=== PATIENT | female | born 1985 | race Caucasian/White ===

== ENCOUNTER 2018-05-28 20:00 | Inpatient (IN) | payer OTHER ==
[2018-05-28 21:43] LABS: PLATELET COUNT 201 10^3/uL (150-400)
[2018-05-29] MEDS ORDERED: LR 500 ML IV ONE (00:21)
[2018-05-29] MEDS ORDERED: CALCIUM GLUC 10% 1 GM/10 ML VIAL IVP PRN (00:21)
[2018-05-29] MEDS ORDERED: ceFAZolin 2 GM/DEXTROSE 100 ML IV ONE (00:21)
[2018-05-29] MEDS ORDERED: MAGNESIUM SULF 4 GM/WATER 100 ML IV ONE (00:21)
[2018-05-29] MEDS ORDERED: LR 1,000 ML IV SCH (00:30)
--- NOTE | 2018-05-29 00:30 | PDGENHP ---
History and Physical History and Physical: Care: [facility] HPI: Pt paged at 1845 reporting MANCINI x 2 days as well as nausea. 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 Had 2 blood pressures in low 140's/90's. Also reports significant swelling in hands and face that have been getting worse. Patient is a 32 yo G 3 P 1 @ 38.5 weeks that presents to L&D with complaints of headache and elevated blood pressures EDC: 06/07/2018 which is based on LMP: 08/13/2017 which is known and consistent with Ultrasound at 6.6 weeks. Her is complicated by: RH negative, prior csection for breech presentation, ho GDM (neg this ) Review of Systems: Constitutional: Denies any fever, chills, or fatigue HEENT: Reports MANCINI x 2 days that improves when lying down however when standing up or bending over "it's excruciating". Also notes "floaties" in peripheral vision. Cardiovascular: Reports some chest tightness but states it occurred when laying down flat on her back and while having a dream, Does have lower extremity edema. Respiratory: denies any cough, wheezing, or shortness of breathe GI: Has had nausea for the past couple of days, denies vomiting, diarrhea, constipation : denies any dysuria, urgency, frequency, vaginal bleeding Musculoskeletal: denies any muscle or bone pain Skin: denies any rashes Neuro: Reports MANCINI x 2 days that improves when lying down however when standing up or bending over "it's excruciating". Also notes "floaties" in peripheral vision. Psychiatric: denies any depression, anxiety, or SI/HI thoughts HISTORY: Previous OB history: pcsec for breech presentation, previous GDM treated with glyburide and diet Past medical history: PCOS , freq cold sores Past surgical history: pcsec Social: Denies any alcohol, tobacco, or drug use. Family history: Not relevant Medications: PNV Allergies (list reaction): NKDA LABS: Rh: O neg ABS: Neg Rubella: Immune HbsAg: NR HIV: NR VDRL: NR 1hr: 146; 3 hr normal GC: Neg Chlamydia: Neg Pap: Normal GBS: Negative BMI: (prepreg) 22.6 PHYSICAL EXAM: Constitutional: WN, A&Ox3 HEENT: normocephalic atraumatic, supple Skin: Warm, dry, intact Heart: RRR, no murmur Chest: CTA-B Abdomen: Soft, nontender, gravid SVE: 1-2/50/floating Extremities: +2 edema, negative homans sign, clonus 1+ beat Neuro: +2 DTR, clonus 1+ beat Psych: normal affect assessment: FHT baseline 120-130 +accels, no decels, moderate variability Contractions: toco q 12 Assessment: 1) 32 yo G 3 P 1 with IUP @ 38.5 2) Preeclampsia with severe features 3) GBS neg 4) Cat 1 FHR tracing Plan: 1) Admit to L&D 2) Consulted with Dr Flores with plan to refer given high risk status. 3) Reviewed options with patient regarding induction of labor versus repeat csection. Given the severe preeclampsia diagnosis and likelihood of a long induction, recommended a repeat csection which she is consenting to. Also, discussed Magnesium Sulfate and anticipated treatment, side effects and plan to continue . 4) Dr Flores is assuming care from this point and will be writing orders for Magnesium protocol
--- NOTE | 2018-05-29 01:31 | PDCONSULT ---
Tool Machinist Note: See Zulma Holden H&P - this is my addendum to it: Consulted by Zulma Holden CNM. H&P fully reviewed. I also interviewed and examined patient. Agree with assessment of 32 at 38w5d with preeclampsia with severe features (headache), and hx of prior C/S with an unfavorable cervix. Plan - written informed consent obtained. Will start magsulfate seizure prophylaxis now. Bonnie Flores MD, [facility]
--- NOTE | 2018-05-29 01:33 | OBDEL ---
Info Type: Repeat Presentation at Delivery: Vertex L&D Analgesia/Anesthesia Type: Spinal GBS+: No Intrapartum Medications: Generic Name Dose Route Start Last Admin Trade Name Freq PRN Reason Stop Dose Admin Lactated Ringer's 1,000 mls @ 125 mls/hr 05/29/18 00:30 05/29/18 00:58 Lr IV 05/30/18 00:29 1,000 mls CONT JAMIE Administration Discontinued Medications Generic Name Dose Route Start Last Admin Trade Name Freq PRN Reason Stop Dose Admin Magnesium Sulfate 100 mls @ 200 mls/hr 05/29/18 00:21 05/29/18 00:58 Magnesium Sulf 4 Gm (Premix) IV 05/29/18 00:50 100 mls ONCE ONE Administration - Infant Care Provider Prisoner Classification Interviewer/TAPING SUPERVISOR: Nadya Bahena - Hospital Course Intrapartum: 05/29/18 03:22 received 4 gm of Magsulfate bolus prior to the OR Indications for Delivery: Preeclampsia Severe (severe by headache and scotomata) Operative Report - Delivery Pre-op Diagnoses: Preeclampsia with severe features, prior section, unfavorable cervix Post-op Diagnoses: unchanged History of Prior Section: Yes Number of Prior Sections: 1 Indications for Prior Section: Breech Indications for Current Section: Other (Specify) (preeclampsia with severe features, unfavorable cervix in setting of a prior section) Procedure: Unscheduled Surgeon: Bonnie Flores Industrial Trainer: Julieth Fields Anesthesiologist: Cristofer Loco Findings: Normal appearing uterus, tubes, and ovaries Data CHRISTINA: 06/07/18 Gestational Age: 38 week(s) and 5 day(s) [place] Delivery Date: 05/29/18 Delivery Time: 02:32 Sex of : Female (Phoebe) Gracey Weight (gm): 3264 g Score (1 Min): 9 Score (5 Min): 9 ICD10 Worksheet Patient Problems: Problems Problem Status Onset delivery, delivered, current hospitalization Acute History of delivery, currently Acute History of delivery, currently Acute Pre-eclampsia during in third trimester, antepartum Acute - ICD10 Problem Qualifiers (1) Pre-eclampsia during in third trimester, antepartum (2) History of delivery, currently (3) History of delivery, currently (4) delivery, delivered, current hospitalization
[2018-05-29] MEDS: Mag Sulf 500 ML IV SCH ×2 (01:38→22:08)
[2018-05-29] MEDS ORDERED: fentaNYL 100 MCG/2 ML INJ IVP PRN (01:44)
[2018-05-29] MEDS ORDERED: NALOXONE HCL 0.4 MG/ML INJ IVP PRN ×2 (01:44)
[2018-05-29] MEDS ORDERED: ONDANSETRON 4 MG/2 ML VIAL IVP PRN ×2 (01:44)
[2018-05-29] MEDS ORDERED: LABETALOL HCL 5 MG/ML 20 ML MDV IVP PRN (01:44)
[2018-05-29] MEDS ORDERED: PHENYLEPHRINE HCL 100 MCG/ML SYR IVP PRN (01:44)
--- NOTE | 2018-05-29 01:51 | PREANESOB ---
Obstetric Pre-Anesthesia Info - General Info Proposed Procedure: C/S : 3 Para: 1 CHRISTINA: 06/07/18 Gestational Age: 38 week(s) and 4 day(s) - Info Status: Full Term, [place] Monitors: External FHR Pattern: Reassuring - Labor Status PIH: Moderate Magnesium Sulfate in Use: Yes Section History: Repeat Indications for Current Section: Other (Specify) (preeclampsia with severe features, unfavorable cervix in setting of a prior section) Labor Epidural: No Anesthesia Allergies/Adverse Reactions: Allergy/AdvReac Type Severity Reaction Status Date / Time No Known Allergies Allergy Unverified 05/28/18 21:14 Visit Medications: Generic Name Dose Route Start Last Admin Trade Name Freq PRN Reason Stop Dose Admin Calcium Gluconate 1 gm 05/29/18 00:21 Calcium Gluconate IVP 11/25/18 00:20 PRN PRN Magnesium Toxicity Diphenhydramine HCl 25 - 50 mg 05/29/18 01:44 Benadryl Injection IVP 05/30/18 01:43 Q6HRS PRN Itching Fentanyl 25 - 50 mcg 05/29/18 01:44 Sublimaze IVP 05/29/18 02:45 Q5M PRN Short acting pain control Lactated Ringer's 1,000 mls @ 125 mls/hr 05/29/18 00:30 05/29/18 00:58 Lr IV 05/30/18 00:29 1,000 mls CONT JAMIE Administration Magnesium Sulfate 500 mls @ 50 mls/hr 05/29/18 00:30 05/29/18 01:38 Magnesium Sulfate 20 Gm/ 500 Ml (Premix) IV 11/25/18 00:29 500 mls CONT JAMIE Administration Labetalol HCl 5 - 10 mg 05/29/18 01:44 Trandate Injection IVP 05/29/18 02:45 Q10M PRN Hypertension Morphine Sulfate 1 - 2 mg 05/29/18 01:44 Morphine IVP 05/29/18 02:45 Q10M PRN Pain, Severe Unable to Take PO Naloxone HCl 0.1 mg 05/29/18 01:44 Narcan IVP 05/29/18 02:45 Q2M PRN Respiratory Depression Naloxone HCl 0.4 mg 05/29/18 01:44 Narcan IVP 05/30/18 01:47 PRN PRN respiratory depression Ondansetron HCl 4 mg 05/29/18 01:44 Zofran IVP 05/29/18 02:45 ONCE PRN Nausea/Vomiting, Can't Take PO Ondansetron HCl 4 mg 05/29/18 01:44 Zofran IVP 05/30/18 01:43 Q4HRS PRN Nausea/Vomiting, Can't Take PO Phenylephrine HCl 100 mcg 05/29/18 01:44 Neosynephrine IVP 05/29/18 02:45 Q1M PRN Hypotension Discontinued Medications Generic Name Dose Route Start Last Admin Trade Name Freq PRN Reason Stop Dose Admin Cefazolin Sodium/Dextrose 100 mls @ 200 mls/hr 05/29/18 00:21 Ancef 2 Gm IV 05/29/18 00:50 ONCALL ONE Protocol Lactated Ringer's 500 mls @ 0 mls/hr 05/29/18 00:21 Lr IV 05/29/18 00:22 ONCE ONE As Directed Magnesium Sulfate 100 mls @ 200 mls/hr 05/29/18 00:21 05/29/18 00:58 Magnesium Sulf 4 Gm (Premix) IV 05/29/18 00:50 100 mls ONCE ONE Administration - Vital Signs Height/Weight (Nursing): Height 153.67 cm Weight 71.668 kg Labs: 05/28/18 20:30 05/28/18 20:30 Patient ABO/Rh O NEGATIVE 05/28/18 20:40 Uric Acid 6.4 mg/dL (2.5-6.8) 05/28/18 20:30 Total Bilirubin 0.2 mg/dL (0.1-1.4) 05/28/18 20:30 Conjugated Bilirubin 0.1 mg/dL (0.0-0.5) 05/28/18 20:30 Unconjugated Bilirubin 0.1 mg/dL (0.0-1.1) 05/28/18 20:30 AST 22 IU/L (14-46) 05/28/18 20:30 ALT 20 IU/L (9-52) 05/28/18 20:30 Lactate Dehydrogenase 523 IU/L (313-618) 05/28/18 20:30
[2018-05-29] MEDS ORDERED: METHYLERGONOVINE MAL 0.2 MG/ML INJ ONE (01:52)
[2018-05-29] MEDS ORDERED: OXYTOCIN 10 UNIT/ML VIAL ONE (01:52)
[2018-05-29] MEDS ORDERED: MISOPROSTOL 200 MCG TAB ONE (01:52)
[2018-05-29] MEDS ORDERED: morphINE PF 5 MG/10 ML INJ ONE (01:54)
[2018-05-29] MEDS ORDERED: fentaNYL 100 MCG/2 ML INJ ONE (01:54)
[2018-05-29] MEDS ORDERED: OXYTOCIN 100 UNITS/10 ML VIAL ONE (02:00)
[2018-05-29] MEDS ORDERED: PHENYLEPHRINE HCL 100 MCG/ML SYR ONE (02:12)
[2018-05-29] MEDS ORDERED: ONDANSETRON 4 MG/2 ML VIAL ONE (02:45)
[2018-05-29] MEDS ORDERED: PROPOFOL 200 MG/20 ML VIAL ONE (02:52)
--- NOTE | 2018-05-29 03:21 | POSTOPPROG ---
Post Op Note Date of Operation: 05/29/18 Surgeon: Bonnie Flores Furnace Cooler: Julieth Fields Anesthesiologist: Cristofer Loco Anesthesia: Spinal Pre-op Diagnosis: preeclampsia with severe features, prior section Post-op Diagnosis: same Indication: preeclampsia with severe features, prior section, unfavorable cerv Procedure: Repeat low transverse section Findings: normal appearing uterus, tubes & ovaries, female infant from [place] Inf/Abcess present in the surg proc area at time of surgery?: No EBL: 500-1000 Total fluids administered: 1000 ml Complications: none Specimen(s): pt desires taking placenta home
--- NOTE | 2018-05-29 03:37 | POSTANESTH ---
Post Anesthetic Evaluation Cardiovascular Status: Normal, Stable Respiratory Status: Normal, Stable, Similar to Pre-op Cond. Level of Consciousness/Mental Status: Can Participate in Eval, Alert and Oriented Pain Control: Adequate, Prn Tx Ordered Nausea/Vomiting Control: Adequate, Prn Tx Ordered Complications Possibly Related to Anesthesia: None Noted
[2018-05-29] MEDS ORDERED: oxyCODONE IR 5 MG TAB PO PRN (06:33)
[2018-05-29] MEDS ORDERED: DOCUSATE SODIUM 100 MG CAP PO PRN ×2 (06:33→07:44)
[2018-05-29] MEDS ORDERED: KETOROLAC 30 MG/1 ML SDV IVP SCH (06:45)
--- NOTE | 2018-05-29 07:09 | GOP ---
DATE OF OPERATION: 05/29/2018 SURGEON: Bonnie Flores MD PHYSICAL SCIENCE TECHNICIAN: VIRGINIE Gutierres. ANESTHESIA: Spinal. ANESTHESIOLOGIST: Cristofer Loco MD. PREOPERATIVE DIAGNOSIS: 1. Preeclampsia with severe features. 2. Prior section. 3. Unfavorable cervix. POSTOPERATIVE DIAGNOSIS: 1. Preeclampsia with severe features. 2. Prior section. 3. Unfavorable cervix. PROCEDURE PERFORMED: Repeat low transverse section. FINDINGS: Normal-appearing uterus, tubes, and ovaries. Female was in the vertex [place] presentation. ESTIMATED BLOOD LOSS: 800 mL. INDICATIONS: 32-year-old 3, para 1 female at 38 weeks and 5 days gestation, presented to Labor and Delivery with elevated blood pressures and headaches and scotomata. Her protein to creatinine ratio was 0.77. All other preeclamptic labs were in the normal range. When her cervix was found to be unfavorable a discussion was had and the decision was made to proceed with a repeat section since she was remote from delivery. DESCRIPTION OF PROCEDURE: Indications, benefits, risks and adverse affects of the recommended section were discussed with the patient. Written informed consent was obtained. She was given a 4 g bolus of magnesium sulfate in the room prior to being taken back to the operating room, where the magnesium sulfate was running at 2gm / hour. She was given 2 g of Ancef on- call to the operating room. In the operating room, a spinal anesthetic was placed. When this was deemed adequate she was placed in the dorsal supine position with a leftward tilt. Her abdomen was prepared and draped in a sterile fashion after a Carlson catheter had been placed. A time-out was performed. She was tested for sensation. A skin incision was made over the previous skin incision. The keloid area of the scar was excised. The skin incision was then taken down to the fascia and the fascia was incised on either side of the midline. This was extended laterally in a sharp fashion. The fascia was dissected away sharply and bluntly from the underlying rectus muscles on the superior and inferior aspects of the incision. The rectus muscles were and the peritoneum was entered bluntly. A bladder blade and Rich retractor were inserted. A bladder flap was created sharply and bluntly. The bladder blade was placed over the bladder flap. Hysterotomy was made and taken down sharply until the release of clear fluid. The hysterotomy was extended laterally in a blunt fashion. The vertex was able to be grasped and elevated through the hysterotomy. With fundal pressure the remainder of the was able to be easily delivered. Delayed cord clamping was performed for a minute. The cord was then clamped and cut and the was handed to the awaiting nurse practitioner who was Nadya Bahena. A cord segment was obtained which was later discarded. Cord blood sample was obtained. The uterine fundal massage was performed to assist in the delivery of the placenta. The placenta appeared intact. The uterus was exteriorized and cleared of all clots and debris twice. The hysterotomy was repaired in a running locked fashion with 0 Monocryl. A second imbricating layer of 0 Monocryl was placed. Cautery was used to obtain excellent hemostasis of a few small bleeders. The posterior cul-de-sac was lightly irrigated and cleared of all clots and debris. The uterus was replaced into the abdomen. The gutters were also cleared of all clots and debris. The fascia was then closed with 0 PDS in a running fashion. Junior's fascia was then closed with 3-0 Monocryl in a running fashion. The skin was then closed with 4-0 Monocryl in a running subcuticular fashion. Steri-Strips and a dressing were placed over the incision. Sponge, lap, and needle counts were correct x2. Fundal massage was performed to remove any remaining clots in the lower uterine segment. The patient was taken to the recovery room in stable condition. After she has been recovered in the recovery room, she will return to her labor room to receive 24 hours of magnesium sulfate for seizure prophylaxis. TOTAL FLUIDS ADMINISTERED: 1000 mL. COMPLICATIONS: None. /[id number]/MODL MTDD
[2018-05-29] MEDS ORDERED: PROMETHAZINE HCL 25 MG/ML INJ IVP PRN (07:44)
[2018-05-29] MEDS ORDERED: BISACODYL 10 MG SUPP PR PRN (07:44)
[2018-05-29] MEDS ORDERED: SIMETHICONE 80 MG TAB CHEW PO PRN (07:44)
[2018-05-29] MEDS ORDERED: MAGNESIUM HYDROXIDE 30 ML UDCUP PO PRN (07:44)
[2018-05-29] MEDS ORDERED: POLYETHYLENE GLYCOL 3350 17 GM PKT PO PRN (07:44)
[2018-05-29] MEDS ORDERED: LACTULOSE 20 GM/30 ML UDCUP PO PRN (07:44)
[2018-05-29] MEDS ORDERED: ACETAMINOPHEN 325 MG TAB PO SCH (07:45)
[2018-05-29] MEDS ORDERED: IBUPROFEN 600 MG TAB PO SCH (07:45)
[2018-05-29] MEDS: KETOROLAC 30 MG/1 ML SDV IVP SCH ×3 (14:02→21:56)
--- NOTE | 2018-05-29 15:31 | OBPP ---
Progress Note Assessment/Plan: Assessment: 32 y/o G3 now P2 s/p RCS secondary to preeclampsia with severe features and unfavorable cervix POD # 0.5 - pt is stable Plan: Continue current management Pt is stable at this time Cont MgSO4 x 24 hours - discontinue around 0230 05/30 Adequate UO noted BPs stable 116-135/71-86, will cont to monitor Cont routine post-op care H/H in am 05/3005/29/18 15:25 Subjective/ Course: 05/29/18 15:28 Pt seen and examined. She is sitting up in bed, and notes feeling "foggy." She is also itchy. Pain is overall well controlled. Denies any HAs, visual changes or RUQ pain. Denies any f/c/n/v/CP or SOB. Pt is pat ice chips, pulliam in place, and no flatus. Min bleeding noted. BF well so far. Objective: 05/28/18 20:30 05/28/18 20:30 Patient ABO/Rh O NEGATIVE 05/29/18 08:30 Uric Acid 6.4 mg/dL (2.5-6.8) 05/28/18 20:30 Total Bilirubin 0.2 mg/dL (0.1-1.4) 05/28/18 20:30 Conjugated Bilirubin 0.1 mg/dL (0.0-0.5) 05/28/18 20:30 Unconjugated Bilirubin 0.1 mg/dL (0.0-1.1) 05/28/18 20:30 AST 22 IU/L (14-46) 05/28/18 20:30 ALT 20 IU/L (9-52) 05/28/18 20:30 Lactate Dehydrogenase 523 IU/L (313-618) 05/28/18 20:30 Temp Pulse Resp BP Pulse Ox 37.2 C 64 18 133/88 H 97 05/29/18 04:04 05/29/18 05:14 05/29/18 05:14 05/29/18 05:14 05/29/18 05:14 Uterine Position/Fundal Height: Umbilicus -1 Uterine Tone: Firm Physical Exam - Physical Exam General Appearance: WD/WN, alert, no apparent distress Respiratory: lungs clear, normal breath sounds Cardiac/Chest: regular rate, rhythm Abdomen: normal bowel sounds, non-tender, soft, incision (C/D/I with dressing in place), dressing (C/D/I with no shadowing) Extremities: non-tender, normal inspection (with SCDs) DTR- Lower Extremities: Plantar (R): 1+, Plantar (L): 1+ Skin: normal color, warm/dry Neuro/Psych: alert, normal mood/affect, oriented x 3
[2018-05-29] MEDS ORDERED: diphenhydrAMINE 25 MG CAP PO ONE (15:38)
[2018-05-29] MEDS: SIMETHICONE 80 MG TAB CHEW PO PRN (15:42)
[2018-05-29] MEDS: ACETAMINOPHEN 325 MG TAB PO SCH ×2 (19:45→20:10)
[2018-05-29] MEDS: IBUPROFEN 600 MG TAB PO SCH (19:46)
[2018-05-29] MEDS: SENNOSIDES/DOCUSATE SODIUM TAB PO SCH ×2 (19:47→20:10)
[2018-05-30] MEDS: SIMETHICONE 80 MG TAB CHEW PO PRN ×4 (00:42→21:11)
[2018-05-30] MEDS: KETOROLAC 30 MG/1 ML SDV IVP SCH (02:24)
[2018-05-30] MEDS: ACETAMINOPHEN 325 MG TAB PO SCH ×4 (02:25→21:11)
[2018-05-30] MEDS: SENNOSIDES/DOCUSATE SODIUM TAB PO SCH ×2 (08:35→21:48)
[2018-05-30] MEDS: IBUPROFEN 600 MG TAB PO SCH ×3 (08:35→21:12)
--- NOTE | 2018-05-30 11:32 | OBPP ---
Progress Note Assessment/Plan: Assessment: 32 y/o G3 now P2 s/p RCS secondary to preeclampsia with severe features and unfavorable cervix POD # 1 - pt is stable Magnesium discontinued this am at 0230 BPs wnl with the exception of one diastolic value of 92. going well Anemia Plan: Pt is stable Urine output WNL BPs stable overall, will cont to monitor Cont routine post-op care Ferrous sulfate daily 05/30/18 11:26 Subjective/ Course: 05/29/18 15:28 Pt seen and examined. She is sitting up in bed, and notes feeling "foggy." She is also itchy. Pain is overall well controlled. Denies any HAs, visual changes or RUQ pain. Denies any f/c/n/v/CP or SOB. Pt is pat ice chips, pulliam in place, and no flatus. Min bleeding noted. BF well so far. 05/30/18 11:32 Doing well - up walking in halls. Glad to be able to eat and get out of bed. Pain controlled with pain meds - just switched to oral. Tolerating regular diet. Has not voided since pulliam removed this am, but had good urine output before it was removed. Denies MANCINI, SOB, visual changes, epigastric pain. Having some mild right shoulder pain which she said she had after her last C- section that was "gas related". Is taking simethicone and up walking as tolerated. Objective: 05/30/18 05:50 05/28/18 20:30 Patient ABO/Rh O NEGATIVE 05/29/18 08:30 Uric Acid 6.4 mg/dL (2.5-6.8) 05/28/18 20:30 Total Bilirubin 0.2 mg/dL (0.1-1.4) 05/28/18 20:30 Conjugated Bilirubin 0.1 mg/dL (0.0-0.5) 05/28/18 20:30 Unconjugated Bilirubin 0.1 mg/dL (0.0-1.1) 05/28/18 20:30 AST 22 IU/L (14-46) 05/28/18 20:30 ALT 20 IU/L (9-52) 05/28/18 20:30 Lactate Dehydrogenase 523 IU/L (313-618) 05/28/18 20:30 Temp Pulse Resp BP Pulse Ox 36.9 C 64 18 121/92 H 91 L 05/30/18 07:00 05/29/18 05:14 05/29/18 05:14 05/30/18 06:59 05/30/18 07:25 Uterine Position/Fundal Height: Umbilicus -1 Uterine Tone: Firm Physical Exam - Physical Exam EENT: PERRL/EOMI, normal ENT inspection Neck: non-tender Respiratory: lungs clear Cardiac/Chest: regular rate, rhythm Abdomen: hypoactive bowel sounds, distended (soft to touch - no unusual tenderness. Most likely gas related. ), incision (well approximated - steri strips intact. no s/s infection) Extremities: normal range of motion, pedal edema (2+ - moderate bilateral ) Back: Normal inspection Skin: normal color, warm/dry Neuro/Psych: no motor/sensory deficits, alert, normal mood/affect, oriented x 3
--- NOTE | 2018-05-30 12:46 | PDPAINCON ---
Pain Management Consultation Patient referred by : Mark - Subjective Pain at rest (/10): 2 Pain with activity (/10): 4 Pain is: low, well controlled Side effects include: itchiness - Objective Technique: spinal opioid Vital signs: stable - Assessment/Plan Assessment/Plan: pain well-controlled, continue current mgmt Additional comments: Transitioning to Oral Pain Meds
[2018-05-30] MEDS: oxyCODONE IR 5 MG TAB PO PRN ×3 (13:44→21:48)
[2018-05-31] MEDS: ACETAMINOPHEN 325 MG TAB PO SCH ×4 (03:01→15:08)
[2018-05-31] MEDS: oxyCODONE IR 5 MG TAB PO PRN ×4 (03:01→12:23)
[2018-05-31] MEDS: IBUPROFEN 600 MG TAB PO SCH ×3 (03:02→15:08)
[2018-05-31] MEDS: SENNOSIDES/DOCUSATE SODIUM TAB PO SCH (08:35)
[2018-05-31] MEDS: SIMETHICONE 80 MG TAB CHEW PO PRN (09:46)
[2018-05-31 12:28] VITALS: BP 135/90
--- NOTE | 2018-05-31 13:18 | OBPP ---
Progress Note Assessment/Plan: Assessment: PPD 2 - repeat csection Pain well managed. Stable blood pressures, no severe features of preeclampsia Plan: Reviewed POC with Dr Groves. Given that symptoms have resolved and blood pressures have remained stable, ok to discharge home today. Will be monitoring blood pressures and reviewed warning s/sxs. Will be following up in the clinic on Sunday. 05/31/18 13:19 Subjective/ Course: 05/29/18 15:28 Pt seen and examined. She is sitting up in bed, and notes feeling "foggy." She is also itchy. Pain is overall well controlled. Denies any HAs, visual changes or RUQ pain. Denies any f/c/n/v/CP or SOB. Pt is pat ice chips, pulliam in place, and no flatus. Min bleeding noted. BF well so far. 05/30/18 11:32 Doing well - up walking in halls. Glad to be able to eat and get out of bed. Pain controlled with pain meds - just switched to oral. Tolerating regular diet. Has not voided since pulliam removed this am, but had good urine output before it was removed. Denies MANCINI, SOB, visual changes, epigastric pain. Having some mild right shoulder pain which she said she had after her last C- section that was "gas related". Is taking simethicone and up walking as tolerated. 05/31/18 13:14 Doing well. Anxious for discharge home today. Pain well controlled with ibuprofen, tylenol and oxycodone. Tolerating regular diet. Ambulating without difficulty. Did have a mild MANCINI after being outside sitting on the balcony for a long period of time that resolved when she laid down to get some sleep. Denies visual changes, epigastric pain, SOB. Swelling has decreased significantly since . Has good familial support. Plans on picking up a blood pressure cuff to monitor pressure at home. 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 Objective: 05/30/18 05:50 05/28/18 20:30 Patient ABO/Rh O NEGATIVE 05/29/18 08:30 Uric Acid 6.4 mg/dL (2.5-6.8) 05/28/18 20:30 Total Bilirubin 0.2 mg/dL (0.1-1.4) 05/28/18 20:30 Conjugated Bilirubin 0.1 mg/dL (0.0-0.5) 05/28/18 20:30 Unconjugated Bilirubin 0.1 mg/dL (0.0-1.1) 05/28/18 20:30 AST 22 IU/L (14-46) 05/28/18 20:30 ALT 20 IU/L (9-52) 05/28/18 20:30 Lactate Dehydrogenase 523 IU/L (313-618) 05/28/18 20:30 Temp Pulse Resp BP Pulse Ox 36.3 C 83 16 135/90 H 96 05/31/18 08:00 05/31/18 12:00 05/31/18 12:00 05/31/18 12:00 05/31/18 12:00 Blood pressures remain slightly elevated but stable Incision well approximated, no drainage or redness noted. Steri strips in plac Neg Andrew's sign Uterine Position/Fundal Height: At Umbilicus Uterine Tone: Firm
--- NOTE | 2018-05-31 13:25 | OBGCSDC ---
General Delivery Information - General Info : 3 Para: 2 Abortions: 1 Type: Repeat L&D Analgesia/Anesthesia Type: IV Narcotics, Spinal Admission Date: 05/28/18 Labs: Patient ABO/Rh O NEGATIVE 05/29/18 08:30 Hct 33.5 % (38.0-47.0) L 05/30/18 05:50 - Hospital Course Intrapartum: 05/29/18 03:22 received 4 gm of Magsulfate bolus prior to the OR : 05/29/18 15:28 Pt seen and examined. She is sitting up in bed, and notes feeling "foggy." She is also itchy. Pain is overall well controlled. Denies any HAs, visual changes or RUQ pain. Denies any f/c/n/v/CP or SOB. Pt is pat ice chips, pulliam in place, and no flatus. Min bleeding noted. BF well so far. 05/30/18 11:32 Doing well - up walking in halls. Glad to be able to eat and get out of bed. Pain controlled with pain meds - just switched to oral. Tolerating regular diet. Has not voided since pulliam removed this am, but had good urine output before it was removed. Denies MANCINI, SOB, visual changes, epigastric pain. Having some mild right shoulder pain which she said she had after her last C- section that was "gas related". Is taking simethicone and up walking as tolerated. 05/31/18 13:14 Doing well. Anxious for discharge home today. Pain well controlled with ibuprofen, tylenol and oxycodone. Tolerating regular diet. Ambulating without difficulty. Did have a mild MANCINI after being outside sitting on the balcony for a long period of time that resolved when she laid down to get some sleep. Denies visual changes, epigastric pain, SOB. Swelling has decreased significantly since . Has good familial support. Plans on picking up a blood pressure cuff to monitor pressure at home. 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 - Delivery Providers Surgeon: Bonnie Flores Chain Repairer: Julieth Fields Anesthesiologist: Cristofer Loco - Delivery Number of Prior Sections: 1 Indications for Current Section: Other (Specify) (preeclampsia with severe features, unfavorable cervix in setting of a prior section) Surgical Procedures: Unscheduled [place] Data CHRISTINA: 06/07/18 Gestational Age: 39 week(s) and 0 day(s) [place] Delivery Date: 05/29/18 Delivery Time: 02:32 Sex of Infant: Female (Phoebe) Weight (gm): 3264 g Score (1 Min): 9 Score (5 Min): 9 Discharge Information - Discharge Information Condition: Good Instruction/Follow Up: See Instruction Sheet (Follow up in the office on Sunday ), One Week, Two Weeks, Four Weeks, Six Weeks
== END 2018-05-31 17:00 | disposition home or self-care (01) | DRG 788 ==
LOC: FLD 20:00 → OBSVTOIN 20:00 → FLD 05-29 08:32 → FOB 05-30 16:37
PROVIDERS: ADMIT Advanced Practice Midwife; ATTEND Advanced Practice Midwife
PROC: 10D00Z1 Extraction of Products of Conception, Low, Open Approach (ICD-10-PCS; principal; 2018-05-29)
DX: O14.24 HELLP syndrome, complicating childbirth (principal); Z37.0 Single live birth; Z3A.39 39 weeks gestation of pregnancy; O34.43 Maternal care for other abnormalities of cervix, third trimester; O34.219 Maternal care for unspecified type scar from previous cesarean delivery
CPT/HCPCS: J0610; J0690; J1200; J1885; J2210; J2274; J2370; J2405; J2590; J2704; J3010; J3475

== ENCOUNTER 2018-06-01 13:31 | Observation (INO) | payer OTHER ==
[2018-06-01 14:11] LABS: PLATELET COUNT 258 10^3/uL (150-400)
--- NOTE | 2018-06-01 15:00 | PDGENHP ---
History and Physical History and Physical: S) Pt was delivered via csection on 05/29 after the finding of elevated bp's, urine creatinine protein ratio of 0.76 and MANCINI x 2 days. Was on Mag Sulfate just prior to delivery and for 24 hours after. Symptoms resolved, blood pressures were stable at upper 130's to low 140's over low 90. Was discharged yesterday with plan to monitor blood pressures at home and page if higher than 145/95 or if symptomatic. Pt called reporting 2 elevated blood pressures of upper 140's over 100 x 2. Some dizziness, but denies MANCINI, visual changes or epigastric pain. Overall states she feels good, just tired. Advised to come in to [facility] for evaluation and [facility] labs. O) Serial blood pressures have ranged from 159/94 to 147/99 initially down to 130's over 80's. PIH blood work all WNL. Urine creatinine/protein ratio 0.6 which is down from 0.76. Neg clonus. DTR's +1. Swelling has decreased significantly in hands and face since delivery, +1 LE edema. A) Elevated but stable blood pressures. Asymptomatic for preeclampsia. P) Reviewed POC with Dr Flores. Discharge home with precautions. Will call if becomes symptomatic of if pressures 160/100 or greater. She does have a blood pressure cuff at home. Advised to check 4 x a day. Will follow up in the office on Sunday.
--- NOTE | 2018-06-01 15:41 | OBGCSDC ---
General Delivery Information - General Info : 3 Para: 2 Abortions: 1 Admission Date: 06/01/18 (observation) Labs: Hct 34.3 % (38.0-47.0) L 06/01/18 13:45 - Hospital Course : 06/01/18 15:57 obs for preeclampsia Discharge Information - Discharge Information Condition: Good Instruction/Follow Up: See Instruction Sheet (Follow up in the office on Sunday)
== END 2018-06-01 16:20 | disposition home or self-care (01) ==
LOC: FLD 13:31
PROVIDERS: ADMIT Hospitalist; ATTEND Hospitalist
DX: O14.95 Unspecified pre-eclampsia, complicating the puerperium (principal)
CPT/HCPCS: G0378 ×2